=== PATIENT | female | born 1950 | race Hispanic/Latino ===

== ENCOUNTER → 2023-12-27 | Outpatient (REF) | payer MEDICARE | LOC: US 08:43 | PROVIDERS: ATTEND Internal Medicine | DX: R05.9 Cough, unspecified (principal); R14.0 Abdominal distension (gaseous) | CPT/HCPCS: 71046; 76700 ==

== ENCOUNTER → 2024-12-08 | Outpatient (REF) | payer MEDICARE | LOC: CARD 10:35 | PROVIDERS: ATTEND Internal Medicine | DX: M79.604 Pain in right leg (principal); M79.605 Pain in left leg; M25.561 Pain in right knee; M25.562 Pain in left knee | CPT/HCPCS: 93925 ==

== ENCOUNTER → 2025-06-08 | Outpatient (REF) | payer MEDICARE | LOC: US 09:03 | PROVIDERS: ATTEND Internal Medicine | DX: R10.9 Unspecified abdominal pain (principal); M79.605 Pain in left leg; M79.604 Pain in right leg | CPT/HCPCS: 76700; 93922; 93925 ==